=== PATIENT | female | born 1960 | race Caucasian/White ===

== ENCOUNTER → 2017-06-06 | Emergency (ER) | payer OTHER ==
[~2017-06-06] MED LIST: DIPHTH,PERTUSS(ACELL),TET 0.5 ML DISP.SYRIN IM ONE; LIDOCAINE 1%/EPI 1:100000 (50 ML MULTI DOSE VIAL) ONE
[2017-06-06 03:50] VITALS: TEMP 98.6; BMI 28.3
--- NOTE | 2017-06-06 05:50 | PDOC ---
History of Present Illness - General History Source: Patient Exam Limitations: No Limitations - History of Present Illness Initial Comments: 06/06/17 06:03 The patient is a 56 year old female with a significant past medical history of HTN who presents to the ED s/p right upper back laceration since earlier today. The patient reports she was sitting on her couch when a wine glass fell off of her bar. Patient does not recall the glass falling on her right upper back and only noticed it once her roommate pointed out that she was bleeding. She also reports numbness to her right upper arm associated with present symptoms. Patient notes her last tetanus shot was over 10 years ago. Denies headache. Denies fevers or chills. Denies any other symptoms. <Sebas Katz - Last Filed: 06/06/17 06:03> - General History Source: Patient Exam Limitations: No Limitations <Steven Arreaga - Last Filed: 06/06/17 06:41> - General Chief Complaint: Laceration Stated Complaint: laceration Time Seen by Provider: 06/06/17 03:45 Past History <Sebas Katz - Last Filed: 06/06/17 06:03> - Past Medical History Anemia: No Asthma: No Cancer: No Cardiac Disorders: No CVA: No COPD: No DVT: No Dementia: No Diabetes: No Dialysis: No GI Disorders: No Disorders: No HTN: Yes Hypercholesterolemia: No HIV: No Kidney Stones: No Liver Disease: No Psychiatric Problems: No Seizures: No Thyroid Disease: No Lung CA: No - Psycho/Social/Smoking Cessation Hx Anxiety: No Suicidal Ideation: No Smoking Status: No Smoking History: Never smoked Have you smoked in the past 12 months: No Number of Cigarettes Smoked Daily: 0 Information on smoking cessation initiated: No Hx Alcohol Use: No Drug/Substance Use Hx: No <Steven Arreaga - Last Filed: 06/06/17 06:41> - Past Medical History Allergies/Adverse Reactions: Allergies Allergy/AdvReac Type Severity Reaction Status Date / Time No Known Allergies Allergy Verified 06/06/17 03:48 Home Medications: Ambulatory Orders Losartan Potassium 50 mg PO DAILY #30 tablet 09/21/12 Ibuprofen 600 mg PO Q6H PRN #20 tablet 06/06/17 Review of Systems - Review of Systems Able to Perform ROS?: Yes Comments:: 06/06/17 06:04 GENERAL/CONSTITUTIONAL: No fever or chills. No weakness. HEAD, EYES, EARS, NOSE AND THROAT: No change in vision. No ear pain or discharge. No sore throat. CARDIOVASCULAR: No chest pain or shortness of breath. RESPIRATORY: No cough, wheezing, or hemoptysis. GASTROINTESTINAL: No nausea, vomiting, diarrhea or constipation. GENITOURINARY: No dysuria, frequency, or change in urination. MUSCULOSKELETAL: No joint or muscle swelling or pain. No neck or back pain. SKIN: + laceration. No rash NEUROLOGIC: No headache, vertigo, loss of consciousness, or change in strength/ sensation. ENDOCRINE: No increased thirst. No abnormal weight change. HEMATOLOGIC/LYMPHATIC: No anemia, easy bleeding, or history of blood clots. ALLERGIC/IMMUNOLOGIC: No hives or skin allergy. All Other Systems: Reviewed and Negative <Sebas Katz - Last Filed: 06/06/17 06:03> *Physical Exam - Vital Signs Last Vital Signs Temp Pulse Resp BP Pulse Ox 98.6 F 88 20 145/95 96 06/06/17 03:48 06/06/17 03:48 06/06/17 03:48 06/06/17 03:48 06/06/17 03:48 - Physical Exam Comments: 06/06/17 06:04 GENERAL: Awake, alert, and fully oriented, in no acute distress HEAD: No signs of trauma EYES: PERRLA, EOMI, sclera anicteric, conjunctiva clear ENT: Auricles normal inspection, hearing grossly normal, nares patent, oropharynx clear without exudates. Moist mucosa NECK: Normal ROM, supple, no lymphadenopathy, JVD, or masses LUNGS: Breath sounds equal, clear to auscultation bilaterally. No wheezes, and no crackles HEART: Regular rate and rhythm, normal S1 and S2, no murmurs, rubs or gallops ABDOMEN: Soft, nontender, normoactive bowel sounds. No guarding, no rebound. No masses EXTREMITIES: Normal range of motion, no edema. No clubbing or cyanosis. No cords, erythema, or tenderness NEUROLOGICAL: Normal speech SKIN:+ v shaped laceration, approximately 5 cm overlying the right upper back going to the subcutaneous tissue, no active bleeding no identified foreign bodies. Warm, Dry, normal turgor, no rashes noted. <Sebas Katz - Last Filed: 06/06/17 06:03> - Vital Signs Last Vital Signs Temp Pulse Resp BP Pulse Ox 98.6 F 88 20 145/95 96 06/06/17 03:48 06/06/17 03:48 06/06/17 03:48 06/06/17 03:48 06/06/17 03:48 <Steven Arreaga - Last Filed: 06/06/17 06:41> Procedures - Laceration/Wound Repair Right Upper Back Wound Length: 2.6 to 5.0 cm Wound Explored: clean, no foreign body present Wound's Depth, Shape: flap Irrigated w/ Saline: Yes Anesthesia: 1% Lidocaine Amount of Anesthetic (ccs): 7 Wound Debrided: minimal Wound Repaired With: Sutures Suture Size/Type: 4:0 Number of Sutures: 14 Layer Closure: No Sterile Dressing Applied: No <Steven Arreaga - Last Filed: 06/06/17 06:41> ED Treatment Course - Medications Given in the ED: ED Medications Discontinued Medications Generic Name Dose Route Start Last Admin Trade Name Freq PRN Reason Stop Dose Admin Diphtheria/Tetanus/Acell Pertussis 0.5 ml 06/06/17 04:02 06/06/17 04:23 Boostrix - IM 06/06/17 04:03 0.5 ml .ONCE ONE Administration <Sebas Katz - Last Filed: 06/06/17 06:03> - RADIOLOGY Radiology Studies Ordered: Category Date Time Status CHEST PA & LAT [RAD] Stat Radiology 06/06/17 04:02 Taken - Medications Given in the ED: ED Medications Discontinued Medications Generic Name Dose Route Start Last Admin Trade Name Freq PRN Reason Stop Dose Admin Diphtheria/Tetanus/Acell Pertussis 0.5 ml 06/06/17 04:02 06/06/17 04:23 Boostrix - IM 06/06/17 04:03 0.5 ml .ONCE ONE Administration <Steven Arreaga - Last Filed: 06/06/17 06:41> Medical Decision Making - Medical Decision Making 06/06/17 05:09 A portion of this note was documented by scribe services under my direction. I have reviewed the details of the note, within reason, and agree with the documentation with the following case summary and management plan written by me. Patient treated in the ED. Nursing notes are reviewed and incorporated into the medical decision-making. Vital signs reviewed. Peripheral IV access obtained by the nurse, laboratory studies are drawn and sent, reviewed and interpreted by myself. Vital Signs Temp Pulse Resp BP Pulse Ox 98.6 F 88 20 145/95 96 06/06/17 03:48 06/06/17 03:48 06/06/17 03:48 06/06/17 03:48 06/06/17 03:48 56-year-old female with history of hypertension presents with a laceration to her right upper back. Patient had turned and thought she may have cut herself on a broken one glass. She not fall or injure herself. Her friend had noticed that there is injury. There is a V-shaped laceration on the back going to the subcutaneous tissue. Denies numbness or weakness. Last tetanus is unknown. Tenderness is ordered. We'll place sutures and repair the laceration on the patient's back. X-rays obtained initially rule out foreign bodies. X-ray reviewed by me, pending official read demonstrates no acute foreign bodies. 06/06/17 06:37 Wound was irrigated with 1000 mL of normal saline. 14 interrupted 4-0 nylon sutures placed. Scar and wound precautions given. Sutures to be removed in 7-10 days. Patient verbalizes understand agrees with plan. I discussed the physical exam findings, ancillary test results and final diagnoses with the patient. I answered all of the patient's questions. The patient was satisfied with the care received and felt comfortable with the discharge plan and treatment plan. The patient will call their primary care physician within 24 hours to arrange follow-up and will return to the Emergency Department with any new, persistant or worsening symptoms. <Steven Arreaga - Last Filed: 06/06/17 06:41> *DC/Admit/Observation/Transfer - Attestations Scribe Attestion: 06/06/17 06:04 Documentation prepared by Sebas Katz, acting as medical supply technician for Steven Arreaga MD <Sebas Katz - Last Filed: 06/06/17 06:03> - Discharge Dispostion Admit: No <Steven Arreaga - Last Filed: 06/06/17 06:41> Diagnosis at time of Disposition: Laceration - Discharge Dispostion Disposition: HOME Condition at time of disposition: Improved - Prescriptions Prescriptions: Ibuprofen 600 mg PO Q6H PRN #20 tablet PRN Reason: Pain - Referrals Referrals: Evelio Vargas MD [Primary Care Provider] - - Patient Instructions Printed Discharge Instructions: DI for Laceration Repair Additional Instructions: Please take 600 mg of ibuprofen every 6 hours needed for pain. Please change dressing daily. You may get the wound wet with warm soapy water but do not scrub. Please return to the emergency department or to your doctor in 7-10 days for suture removal. - Post Discharge Activity Work/School Note: Back to Work
[2017-06-06 06:55] VITALS: BP 166/76; PULSE 62
== END | disposition home or self-care (01) ==
LOC: JER 03:29
PROC: 3E0234Z Introduction of Serum, Toxoid and Vaccine into Muscle, Percutaneous Approach (ICD-10-PCS; principal; 2017-06-06)
PROC: 0JQ70ZZ Repair Back Subcutaneous Tissue and Fascia, Open Approach (ICD-10-PCS; 2017-06-06)
DX: S21.211A Laceration without foreign body of right back wall of thorax without penetration into thoracic cavity, initial encounter (principal); W25.XXXA Contact with sharp glass, initial encounter; Y93.89 Activity, other specified; Y92.038 Other place in apartment as the place of occurrence of the external cause; Y99.8 Other external cause status
CPT/HCPCS: 71020-TC; 90715; 99282-25

== ENCOUNTER 2024-06-03 08:47 | Observation (INO) | payer OTHER ==
[2024-06-03 10:36] LABS: BASO % 0.3 % (0-2.0); EOS % 0.1 % (0-4.5); HEMATOCRIT 39.4 % (32.4-45.2); HEMOGLOBIN 13.2 GM/dL (10.7-15.3); LYMPH % 13.1 % (8-40); MCH 28.1 pg (25.7-33.7); MCHC 33.6 g/dl (32.0-36.0); MEAN CELL VOLUME 83.6 fl (80-96); MEAN PLT VOLUME 7.6 fl (7.5-11.1); MONO % 4.4 % (3.8-10.2); NEUT % 82.1 % (42.8-82.8); PLATELET COUNT 213 10^3/uL (134-434); RBC 4.71 M/mm3 (3.60-5.2); RDW 13.4 % (11.6-15.6); WHITE BLOOD COUNT 7.6 K/mm3 (4.0-10.0)
[2024-06-03] MEDS ORDERED: MECLIZINE HCL 25 MG TABLET (FP) ONE (10:37)
[2024-06-03] MEDS: MECLIZINE HCL 25 MG TABLET (FP) PO ONE (10:39)
[2024-06-03 11:05] LABS: ALBUMIN 3.9 g/dl (3.4-5.0); CALCIUM 9.3 mg/dL (8.5-10.1)
[2024-06-03 11:07] LABS: BLOOD UREA NITROGEN 10.6 mg/dL (7-18)
[2024-06-03 11:08] LABS: CREATININE 0.8 mg/dL (0.55-1.3)
[2024-06-03 11:10] LABS: BILIRUBIN,TOTAL 0.6 mg/dL (0.2-1); TOT PROT 6.3 g/dl (6.4-8.2)
[2024-06-03 18:51] VITALS: BMI 24.9
[2024-06-03] MEDS ORDERED: ACETAMINOPHEN 325 MG TABLET (FP) PO PRN (19:31)
[2024-06-03] MEDS: ATORVASTATIN CA 10 MG TABLET (FP) PO SCH (21:05)
[2024-06-04 00:48] VITALS: RESP 18
[2024-06-04] MEDS: LISINOPRIL 10 MG TABLET PO SCH (09:04)
[2024-06-04 09:27] VITALS: TEMP 98.1
[2024-06-04] MEDS ORDERED: LISINOPRIL 10 MG TABLET PO SCH (10:00)
[2024-06-04] MEDS ORDERED: ACETAMINOPHEN 325 MG TABLET (FP) PO PRN (10:01)
[2024-06-04 15:03] VITALS: BP 131/91; PULSE 79
== END 2024-06-04 17:55 | disposition home or self-care (01) ==
LOC: JER 08:47 → JERBED 15:19 → J4S 17:45
PROVIDERS: ADMIT Internal Medicine; ATTEND Nurse Practitioner
DX: R42 Dizziness and giddiness (principal); R79.89 Other specified abnormal findings of blood chemistry; I50.30 Unspecified diastolic (congestive) heart failure; I10 Essential (primary) hypertension; M54.2 Cervicalgia; Z29.89 Encounter for other specified prophylactic measures; G89.29 Other chronic pain
CPT/HCPCS: 36415; 80053; 82550; 83718; 83721; 84439; 84443; 84484; 85025; 93005; 93010; 93306-TC; 99285-25; G0378